=== PATIENT | male | born 1955 | race Hispanic/Latino ===

== ENCOUNTER 2016-10-20 10:18 | Day surgery (SDC) | payer OTHER ==
[~2016-10-20] VITALS: Ht 167.6 cm; Wt 93.0 kg
[~2016-10-20 10:18] MED LIST: ASPIRIN325 MG PO; FLOMAX0.4 MG PO; LIPITOR10 MG PO; METFORMIN HCL500 MG PO; MOTRIN IB200 MG PO; NORVASC10 MG PO
[2016-10-20 10:51] VITALS: BP 143/77
[2016-10-20 11:20] LABS: POINT-OF-CARE METER ID UU14174212
[2016-10-20 14:15] VITALS: BP 139/78
[2016-10-20 15:25] VITALS: BP 122/80
== END 2016-10-20 15:42 | disposition home or self-care (01) ==
LOC: SDC 10:18
PROVIDERS: Orthopaedic Surgery
DX: M23.241 Derangement of anterior horn of lateral meniscus due to old tear or injury, right knee (principal); M93.261 Osteochondritis dissecans, right knee; I10 Essential (primary) hypertension; E11.9 Type 2 diabetes mellitus without complications
CPT/HCPCS: 82948; J0690; J1170; J2405; J2795; J3010